=== PATIENT | male | born 1945 | race Caucasian/White ===

== ENCOUNTER 2018-05-22 05:37 | Day surgery (SDC) | payer MEDICARE, OTHER ==
[2018-05-19 13:28] VITALS: BMI 31.2
[2018-05-22] MEDS ORDERED: Thrombin 5000 UNITS/5 ML VIAL ONE (06:16)
[2018-05-22] MEDS ORDERED: CEFAZOLIN/Water 2 GM/20 ML SYRINGE ONE (06:16)
[2018-05-22] MEDS ORDERED: Bupivacaine HCl 0.5%/Epinephrine 1:200,000/PF 30 ml Vial ONE (06:16)
[2018-05-22 06:29] LABS: #Basophils 0.1 thou/uL (0.0-0.2); #Eosinphils 0.3 thou/uL (0.0-0.7); #Lymphocytes 3.5 thou/uL (1.20-3.40); #Neutrophils 3.3 thou/uL (1.40-6.50); %Eosinophils 3.6 % (0.0-10.0); %Lymphocytes 42.7 % (21.0-51.0); %Monocytes 12.2 % (0.0-10.0); %Neutrophils 40.4 % (42.0-75.0); Hemoglobin 14.3 g/dL (14.0-18.0); Mean Corpuscular HGB CONC 32.3 g/dL (32.0-36.0); Mean Corpuscular Hemoglobin 29.3 pg (27.0-31.0); Mean Corpuscular Volume 90.6 fL (78.0-98.0); Mean Platelet Volume 6.8 fL (7.4-10.4); Platelet Count 233 thou/uL (130-400); RBC Distribution Width 12.2 % (11.5-14.5); Red Blood Cell (RBC) Count 4.87 mill/uL (4.70-6.10); White Blood Cell (WBC) Count 8.2 thou/uL (4.8-10.8)
[2018-05-22 06:41] LABS: Anion Gap 9 mmol/L (10-20); BUN (Urea Nitrogen) 16 mg/dL (8.4-25.7); Calc. Creatinine Clearance 85 mL/min (70-130); Calcium 9.6 mg/dL (7.8-10.44); Carbon Dioxide 27 mmol/L (23-31); Chloride 105 mmol/L (98-107); Estimated GFR-MDRD 68; Glucose 126 mg/dL (83-110); Potassium 4.2 mmol/L (3.5-5.1); Sodium 137 mmol/L (136-145)
[2018-05-22] MEDS ORDERED: Midazolam HCl 2 mg/2 ml Vial ONE (06:42)
[2018-05-22] MEDS ORDERED: Fentanyl 100 MCG/2 ML VIAL ONE ×3 (06:42→10:25)
--- NOTE | 2018-05-22 06:52 | HP ---
HISTORY OF PRESENT ILLNESS: Mr. Good is a very pleasant 72-year-old man known to us with previo us decompresoin in 2011 who presents now with a complaint of severe back pain that radiated in a ____ _ dermatomal pattern encompassing L3-L5 dermatomes to the bilateral lower extremities. He has treate d this with epidural steroid injections and medications, but has reached a point now where the treatm ent are not efficacious. reveals severe central canal and foraminal stenosis at L3 to L4 with associated . PAST MEDICAL HISTORY: Significant for hypercholesterolemia, chronic pain syndrome, osteoarthritis, h ypertension, glaucoma. CURRENT MEDICATIONS: Crestor, metoprolol, losartan, dorzolamide. ALLERGIES: MORPHINE. PAST SURGICAL HISTORY: Lumbar decompression, appendectomy, herniorrhaphy, LASIK eye surgery, prostat ectomy, cholecystectomy, cardiac valve repair, CABG x3. PHYSICAL EXAMINATION: NEUROLOGIC: The patient is alert and oriented x3. Gait is significantly antalgic. Lower extremity is normal. ASSESSMENT: Lumbar spondylolisthesis with radiculopathy. PLAN: Dr. Conti met with the patient, reviewed imaging, and advocated for an L3-L4 decompression and fusion. He explained to the patient the risks, benefits, and alternatives to the procedure. The halina caballero expressed understanding and would like to move forward with surgery as discussed. I do believe the patient is mentally competent and capable of making medical decisions for himself. We will move forward with surgery as planned.
--- NOTE | 2018-05-22 12:03 | OP ---
DATE OF PROCEDURE: 05/22/2018 SURGEON: Bridger Conti M.D. ODD SHOE EXAMINER: Rafita Jang PA-C. INDICATION: Pain. PREOPERATIVE DIAGNOSES: Lumbar degenerative disk disease with lumbar spondylolisthesis with lumbar s tenosis, lumbar radiculopathy. PROCEDURE: Reoperation L3-4 bilateral facetectomies, bilateral L3-4 posterolateral instrumented fusi on, placement of allograft, placement of autograft. ANESTHESIA: General. PROCEDURE IN DETAIL: The patient was brought in to the operating room and placed under general anest hesia. He was flipped from a supine to prone position on the operating room table. A linear incisio n was planned over the area of a preexisting incision. After prepping and draping and after an appro priate operative pause, the incision was created. The soft tissues were swept away from midline. A self-retaining retractor was placed in the wound for optimal exposure. After confirming the appropri ate level with C-arm fluoroscopy, an Adson rongeur as well as a high-speed cutting drill bit as well as 2 and 3 mm Kerrisons were used to complete the laminectomy defect that was present before. We ext ended the laminectomy to encompass the facet joints. The operative time was easily doubled secondary to an extensive amount of scar as well as patient's rotational scoliosis. After decompressing the L 3-4 segment, identifying the L3-4 pedicles bilaterally, pedicle screws were placed bilaterally with t he aid of C-arm fluoroscopy. An intraoperative 3D CT scan was performed to confirm appropriate place ment of hardware. Rods were then placed across the screw heads and then final tightened. Allograft and autograft material was then placed in the lateral confines of the instrumentation construct. The wound was irrigated. Hemostasis was maintained throughout. The wound was then closed in anatomic l lee and a pressure dressing was applied. There were no known procedural complications.
[2018-05-22] MEDS ORDERED: CEFAZOLIN 2 GM/50 ML BAG ONE (13:07)
== END 2018-05-22 13:45 | disposition home or self-care (01) ==
LOC: SDC 05:37
PROVIDERS: ATTEND Neurological Surgery
PROC: 01NB0ZZ Release Lumbar Nerve, Open Approach (ICD-10-PCS; principal; 2018-05-22)
DX: M48.061 Spinal stenosis, lumbar region without neurogenic claudication (principal); M51.16 Intervertebral disc disorders with radiculopathy, lumbar region; M43.16 Spondylolisthesis, lumbar region; I48.0 Paroxysmal atrial fibrillation; I25.10 Atherosclerotic heart disease of native coronary artery without angina pectoris; I10 Essential (primary) hypertension; E78.5 Hyperlipidemia, unspecified; I70.0 Atherosclerosis of aorta; I05.9 Rheumatic mitral valve disease, unspecified; Z79.899 Other long term (current) drug therapy; Z88.5 Allergy status to narcotic agent; Z95.1 Presence of aortocoronary bypass graft
CPT/HCPCS: 36415; 76001; 80048; 85025; 96374; 96375; C1713; J0670; J2250; J3010

== ENCOUNTER 2018-11-07 08:58 | Outpatient (CLI) | payer MEDICARE, OTHER ==
[2018-11-07] MEDS ORDERED: Gadobenate Dimeglumine 529 MG/1 ML (20ML VIAL) ONE (10:30)
--- NOTE | 2018-11-07 10:43 | MRI ---
MRI Lumbar Spine withcontrast: HISTORY: Pain, radiculopathy of lumbar spine COMPARISON: None FINDINGS: Conus medullaris is normal in morphology and terminates at the L1 level. Susceptibility from posterior hardware involves the L3 and L4 segments, limiting visualization of thi s region. There is a presumed postoperative small fluid collection at the site of the posterior element surgery of the L3-4 level. Incidental note of partially imaged T2 hyperintensities of each ki dney, larger on the left. There is prominence of each renal pelvis, incompletely evaluated. Mild nonspecific marrow edema is present involving posterior aspects of the L2 and L3 vertebral body without significant height loss. There is multilevel bilateral mild to moderate degenerative facet hypertrophy. L1-2:Broad-based disc osteophyte with slight effacement of ventral thecal sac. Mild right neural fora mey narrowing. No significant left foraminal narrowing L2-3:Broad-based disc osteophyte results in mild central canal stenosis. There is mild bilateral neur al foraminal narrowing. L3-4:Grade 1 spondylolisthesis. Disc osteophyte complex with slight effacement of ventral thecal sac. Neural foramina are distorted by adjacent hardware susceptibility, limiting visualization. L4-5:Mild central canal stenosis as result of broad-based disc osteophyte. There is minimal narrowing of each neural foramina. L5-S1:Mild disc osteophyte. No significant central canal stenosis. Mild bilateral neural foraminal na rrowing. Postcontrast imaging does not reveal pathologic, mass-producing enhancement of the vertebral canal. N o pathologic enhancement of nerve roots of cauda equina. IMPRESSION: Postoperative lumbar spine, with multilevel degenerative change, as outlined above. Transcribed Date/Time: 11/07/2018 11:01 AM
== END 2018-11-07 08:59 | disposition home or self-care (01) ==
LOC: TBSIIMAG 08:58
PROVIDERS: ATTEND Neurological Surgery
DX: M47.26 Other spondylosis with radiculopathy, lumbar region (principal); Z98.890 Other specified postprocedural states
CPT/HCPCS: 72158; 82565; A9577